=== PATIENT | female | born 1955 | race Two or more races ===

== ENCOUNTER 2018-12-17 20:45 | Inpatient (IN) | payer BC ==
[~2018-12-17] VITALS: Ht 156.2 cm; Wt 86.0 kg
[2018-12-17 21:45] LABS: BASOPHILS % (AUTO) 0.4 % (0-1); EOSINOPHILS # (AUTO) 0.1 X10'3 (0-0.9); EOSINOPHILS % (AUTO) 1.5 % (0-6); HEMATOCRIT 37.5 % (35.0-45.0); HEMOGLOBIN 13.1 g/dl (12.0-16.0); LYMPHOCYTES # (AUTO) 1.6 X10'3 (1.1-4.8); LYMPHOCYTES % (AUTO) 16.9 % (21-51); MEAN CORPUSCULAR HEMOGLOBIN 29.6 PG (27.0-31.0); MEAN CORPUSCULAR VOLUME 84.5 FL (78-98); MEAN PLATELET VOLUME 7.3 FL (7.4-10.4); MONOCYTES # (AUTO) 0.5 X10'3 (0-0.9); MONOCYTES % (AUTO) 5.5 % (2-12); NEUTROPHILS # (AUTO) 7.1 X10'3 (1.8-7.7); NEUTROPHILS % (AUTO) 75.7 % (42-75); PLATELET COUNT 276 X10'3 (140-440); RED BLOOD COUNT 4.44 X10'6 (4.20-5.60); RED CELL DISTRIBUTION WIDTH 12.9 % (11.5-14.5); WHITE BLOOD COUNT 9.4 X10'3 (4.5-11.0)
[2018-12-17 22:03] LABS: PARTIAL THROMBOPLASTIN TIME 27 SECONDS (22-32)
[2018-12-17 22:08] LABS: ALANINE AMINOTRANSFERASE 23 U/L (12-78); ALBUMIN 3.7 G/DL (3.4-5.0); ALBUMIN/GLOBULIN RATIO 1.1 (1.1-1.5); ALKALINE PHOSPHATASE 103 IU/L (46-116); ANION GAP 10 (8-16); ASPARTATE AMINO TRANSFERASE 19 U/L (10-37); BILIRUBIN,TOTAL 0.6 MG/DL (0.1-1.0); BLOOD UREA NITROGEN 17 MG/DL (7-18); BUN/CREATININE RATIO 17.9 (6.6-38.0); CALCIUM 8.5 MG/DL (8.5-10.1); CHLORIDE 89 MMOL/L (99-107); CREATININE 0.95 MG/DL (0.40-0.90); GLUCOSE 157 MG/DL (70-104); POTASSIUM 3.7 MMOL/L (3.5-5.1); SODIUM 122 MMOL/L (135-145); TOTAL CARBON DIOXIDE 23.2 MMOL/L (24-32); TOTAL PROTEIN 7.2 G/DL (6.4-8.2); eGFR 59 ML/MIN
[2018-12-17] MEDS: aspirin 325mg tablet PO ONE ×2 (23:02→23:03)
[2018-12-17] MEDS ORDERED: aspirin 300mg supp.rect RC STA (23:13)
[2018-12-17] MEDS ORDERED: regadenoson 0.4mg/5ml syringe IV ONE (23:45)
[2018-12-17] MEDS ORDERED: magnesium 4gm in 100ml NS 100 ML IV PRN (23:45)
[2018-12-17] MEDS ORDERED: potassium Cl 40MEQ/NS 500ml 500 ML IV PRN ×2 (23:45)
[2018-12-17] MEDS ORDERED: aminophylline 250mg/10ml inj. IV PRN (23:45)
[2018-12-17] MEDS ORDERED: magnesium Cl slow-release 64mg tablet PO PRN (23:45)
[2018-12-17] MEDS ORDERED: nitroGLYCERIN 0.4mg SUBLingual tab SL PRN (23:45)
[2018-12-17] MEDS ORDERED: metoprolol tartrate 1mg/ml inj IV PRN (23:45)
[2018-12-17] MEDS ORDERED: acetaminophen 325mg tablet PO PRN (23:45)
[2018-12-17] MEDS ORDERED: magnesium 2GM in 50ml NS 50 ML IV PRN (23:45)
[2018-12-17] MEDS ORDERED: ondansetron/PF 4mg/2ml inj IV PRN (23:45)
[2018-12-17] MEDS ORDERED: potassium Cl 20 mEq SR tablet PO PRN ×2 (23:45)
[2018-12-17] MEDS ORDERED: LISI10TA4 PO (23:57)
[2018-12-17] MEDS ORDERED: ASPI-845 PO (23:57)
[2018-12-18] VITALS (11 sets, daily range): BP systolic 111–163; BP diastolic 46–74
[2018-12-18] MEDS ORDERED: LANTUS (00:02)
[2018-12-18] MEDS ORDERED: GLIP-192 PO (00:02)
[2018-12-18] MEDS ORDERED: ROSU5TAB11 PO (00:02)
[2018-12-18] MEDS ORDERED: SITA1TAB6 PO (00:02)
[2018-12-18] MEDS ORDERED: CARV6.253 PO (00:02)
[2018-12-18] MEDS ORDERED: FURO20TA4 PO (00:02)
[2018-12-18] MEDS: normal saline 1000ml 1,000 ML IV SCH ×3 (00:19→12:40)
--- NOTE | 2018-12-18 00:22 | NUR ---
came into room as the bp was noted to be elevated and the patient is c/o c/p and has a little sweat beaded on her forehead and she is shaking. Afebrile. BP 206/99 c/p 8/10 substernal. Adm 0.4 mg NTG SL. She is appearing anxious as well. She c/o SOB.
--- NOTE | 2018-12-18 00:33 | NUR ---
Pt had been placed on oxygen 2 L NC. EKG has been done.
[2018-12-18] MEDS ORDERED: LORazepam 2 mg/ml vial IV STA (00:37)
--- NOTE | 2018-12-18 00:39 | NUR ---
daughter is here and says it could very well be anxiety because the patient's here r/t heart problems and patients 2 children of heart problems.
--- NOTE | 2018-12-18 00:39 | NUR ---
Dr Willard stopped by to check on the patient, SBAR given, received order for ativan.
--- NOTE | 2018-12-18 01:06 | NUR ---
Pt is resting, her hands are not trembling. She is actually asleep.
--- NOTE | 2018-12-18 01:24 | NUR ---
RECEIVED REPORT FROM AYE MARTINEZ PENDING ARRIVAL FROM ER. WILL GIVE REPORT TO AYE TALBOT ONCE BACK FROM BREAK.
--- NOTE | 2018-12-18 01:24 | NUR ---
pt daughter states that a family member commited suicide last month, this thursday will be 2 year anniversary for in this hospital
[2018-12-18] MEDS ORDERED: dextrose 50%-water 50ml dispensing syringe IV PRN ×2 (03:30)
[2018-12-18] MEDS ORDERED: glucagon, human recombinant 1mg kit SUBCUT PRN (03:30)
[2018-12-18] MEDS ORDERED: MESSAGE TO PHARMACY PO ONE (03:30)
[2018-12-18] MEDS ORDERED: dextrose ORAL solution 15 GM/59 ML bottle PO PRN ×2 (03:30)
[2018-12-18 04:46] LABS: BASOPHILS % (AUTO) 0.2 % (0-1); EOSINOPHILS % (AUTO) 0.3 % (0-6); HEMATOCRIT 38.3 % (35.0-45.0); HEMOGLOBIN 13.3 g/dl (12.0-16.0); LYMPHOCYTES # (AUTO) 1.2 X10'3 (1.1-4.8); LYMPHOCYTES % (AUTO) 12.2 % (21-51); MEAN CORPUSCULAR HEMOGLOBIN 29.2 PG (27.0-31.0); MEAN CORPUSCULAR HGB CONC 34.8 g/dL (33.0-36.5); MEAN CORPUSCULAR VOLUME 83.9 FL (78-98); MEAN PLATELET VOLUME 7.1 FL (7.4-10.4); MONOCYTES # (AUTO) 0.4 X10'3 (0-0.9); MONOCYTES % (AUTO) 4.4 % (2-12); NEUTROPHILS # (AUTO) 7.9 X10'3 (1.8-7.7); NEUTROPHILS % (AUTO) 82.9 % (42-75); PLATELET COUNT 251 X10'3 (140-440); RED BLOOD COUNT 4.57 X10'6 (4.20-5.60); RED CELL DISTRIBUTION WIDTH 13.1 % (11.5-14.5); WHITE BLOOD COUNT 9.6 X10'3 (4.5-11.0)
[2018-12-18 05:13] LABS: ALBUMIN 3.3 G/DL (3.4-5.0); ANION GAP 8 (8-16); BLOOD UREA NITROGEN 16 MG/DL (7-18); BUN/CREATININE RATIO 18.4 (6.6-38.0); CALCIUM 8.2 MG/DL (8.5-10.1); CHLORIDE 91 MMOL/L (99-107); CREATININE 0.87 MG/DL (0.40-0.90); GLUCOSE 195 MG/DL (70-104); MAGNESIUM 1.5 MG/DL (1.5-2.4); SODIUM 122 MMOL/L (135-145); eGFR 66 ML/MIN
[2018-12-18 05:35] LABS: HEMOGLOBIN A1C 9.3 % (4.5-6.2)
--- NOTE | 2018-12-18 06:10 | NUR ---
Patient in room ORTHO 4009. I have received report from Nahid Wright RN and had the opportunity to ask questions and assume patient care.
[2018-12-18] MEDS: insulin Lispro (HumaLOG) vial - multi-dose SQ SCH ×4 (07:50→21:18)
[2018-12-18] MEDS: K and/or MAG REPLACEMENT MC SCH (08:00)
[2018-12-18] MEDS: carvedilol 6.25mg tablet PO SCH (08:00)
[2018-12-18] MEDS: atorvastatin 20mg tablet PO SCH (08:02)
[2018-12-18] MEDS: aspirin 325mg tablet, delayed-release (Ecotrin) PO SCH (08:02)
--- NOTE | 2018-12-18 08:25 | NUR ---
Pt taken to [facility]
[2018-12-18] MEDS ORDERED: regadenoson 0.4mg/5ml syringe IV ONE (09:28)
[2018-12-18] MEDS ORDERED: aminophylline inj. 10 ML IV ONE ×2 (09:28→09:56)
--- NOTE | 2018-12-18 10:29 | NUR ---
[facility] well per RN
[2018-12-18] MEDS: lisinopril 10 MG tablet PO SCH (10:38)
[2018-12-18 11:51] LABS: CHOLESTEROL 117 MG/DL (0-200); HDL CHOLESTEROL 39 MG/DL (35-60); LDL CHOLESTEROL 63 MG/DL (50-100); TRIGLYCERIDES 129 MG/DL (20-135)
--- NOTE | 2018-12-18 11:56 | NUR ---
Spent time in pt's room with MD present. Reviewed pt's current status, med changes, advised Coreg was held due to decreased HR, will continue to monitor
--- NOTE | 2018-12-18 12:19 | NUR ---
DM consult: Pt with A1c 9.3. Attempted visit with patient at bedside however pt unavailable. Will f/u for DM ed prior to d/c. Pt admit with CP and hyponatremia. Pt currently on CHO controlled diet pending documented PO intake. LBM 12/17. No edema or wounds. Will continue to follow. Recommendations: 1) Continue with CHO controlled diet 2) DM ed prior to d/c 3) Wt per rx Addendum: 12/18/18 at [address] Amended: Links added.
[2018-12-18 14:31] LABS: ALBUMIN 3.2 G/DL (3.4-5.0); ANION GAP 8 (8-16); BLOOD UREA NITROGEN 12 MG/DL (7-18); BUN/CREATININE RATIO 14.8 (6.6-38.0); CALCIUM 8.8 MG/DL (8.5-10.1); CHLORIDE 99 MMOL/L (99-107); CREATININE 0.81 MG/DL (0.40-0.90); GLUCOSE 258 MG/DL (70-104); SODIUM 130 MMOL/L (135-145); TOTAL CARBON DIOXIDE 23.1 MMOL/L (24-32); eGFR 71 ML/MIN
[2018-12-18 14:33] LABS: POTASSIUM 3.9 MMOL/L (3.5-5.1)
--- NOTE | 2018-12-18 18:19 | NUR ---
Problems reprioritized. Patient report given, questions answered & plan of care reviewed with Gina GRIFFITHS.
[2018-12-18] MEDS: insulin glargine (Lantus) pen - multi-dose SQ SCH (21:19)
[2018-12-19 06:00] VITALS: BP 138/56
[2018-12-19 06:08] LABS: BASOPHILS % (AUTO) 0.6 % (0-1); EOSINOPHILS # (AUTO) 0.2 X10'3 (0-0.9); EOSINOPHILS % (AUTO) 3.5 % (0-6); HEMOGLOBIN 12.7 g/dl (12.0-16.0); LYMPHOCYTES # (AUTO) 1.8 X10'3 (1.1-4.8); LYMPHOCYTES % (AUTO) 29.5 % (21-51); MEAN CORPUSCULAR HEMOGLOBIN 29.9 PG (27.0-31.0); MEAN CORPUSCULAR HGB CONC 34.4 g/dL (33.0-36.5); MEAN CORPUSCULAR VOLUME 86.9 FL (78-98); MEAN PLATELET VOLUME 7.2 FL (7.4-10.4); MONOCYTES # (AUTO) 0.5 X10'3 (0-0.9); MONOCYTES % (AUTO) 8.3 % (2-12); NEUTROPHILS # (AUTO) 3.5 X10'3 (1.8-7.7); NEUTROPHILS % (AUTO) 58.1 % (42-75); PLATELET COUNT 226 X10'3 (140-440); RED BLOOD COUNT 4.26 X10'6 (4.20-5.60); RED CELL DISTRIBUTION WIDTH 13.6 % (11.5-14.5)
[2018-12-19 06:24] LABS: ALBUMIN 3.3 G/DL (3.4-5.0); ANION GAP 9 (8-16); BLOOD UREA NITROGEN 14 MG/DL (7-18); BUN/CREATININE RATIO 16.9 (6.6-38.0); CALCIUM 8.5 MG/DL (8.5-10.1); CHLORIDE 106 MMOL/L (99-107); CREATININE 0.83 MG/DL (0.40-0.90); GLUCOSE 127 MG/DL (70-104); MAGNESIUM 1.8 MG/DL (1.5-2.4); SODIUM 138 MMOL/L (135-145); TOTAL CARBON DIOXIDE 23.4 MMOL/L (24-32); eGFR 69 ML/MIN
--- NOTE | 2018-12-19 06:35 | NUR ---
REPORT GIVEN TO AYE DESAI.
[2018-12-19] MEDS: K and/or MAG REPLACEMENT MC SCH (06:46)
[2018-12-19] MEDS: atorvastatin 20mg tablet PO SCH (07:19)
[2018-12-19] MEDS: lisinopril 10 MG tablet PO SCH ×2 (07:19→09:54)
[2018-12-19] MEDS: aspirin 325mg tablet, delayed-release (Ecotrin) PO SCH (07:19)
[2018-12-19] MEDS: carvedilol 6.25mg tablet PO SCH (07:20)
--- NOTE | 2018-12-19 08:12 | NUR ---
CAT BITE TO HAND. Addendum: 12/19/18 at 0828 by Cyndi Keyes RN Amended: Links added. Addendum: 12/19/18 at 1325 by Cyndi Keyes RN WRONG PATIENT
[2018-12-19] MEDS: insulin Lispro (HumaLOG) vial - multi-dose SQ SCH ×4 (08:48→21:00)
[2018-12-19 10:00] VITALS: BP 116/43
[2018-12-19] MEDS: normal saline 1000ml 1,000 ML IV SCH (12:23)
--- NOTE | 2018-12-19 13:02 | NUR ---
Pt seen by SHAYNA for written/verbal DM ed w/ RD contact information provided. Pt declined verbal DM ed but accepted card and handout. RD encouraged pt to attend CDE course. Pt goes to [facility] and shares she knows what to do but needs to follow it. Addendum: 12/19/18 at [address] Amended: Links added.
--- NOTE | 2018-12-19 13:25 | NUR ---
PATIENT TO MRI
--- NOTE | 2018-12-19 16:02 | NUR ---
TELE NEURO CONSULT COMPLETED WITH DR BRIGGS AFTER VERBAL CONSENT OBTAINED FROM PT.
--- NOTE | 2018-12-19 16:17 | NUR ---
DISCUSSED TELE NEUROLOGIST CONVERSATION WITH DR CAMARENA.
[2018-12-19 18:00] VITALS: BP 139/59
[2018-12-19] MEDS: insulin glargine (Lantus) pen - multi-dose SQ SCH (21:01)
[2018-12-19 22:00] VITALS: BP 149/61
[2018-12-20 06:00] VITALS: BP 124/47
[2018-12-20 06:27] LABS: BASOPHILS % (AUTO) 0.5 % (0-1); EOSINOPHILS # (AUTO) 0.3 X10'3 (0-0.9); EOSINOPHILS % (AUTO) 5.3 % (0-6); HEMATOCRIT 33.8 % (35.0-45.0); HEMOGLOBIN 11.7 g/dl (12.0-16.0); LYMPHOCYTES # (AUTO) 1.8 X10'3 (1.1-4.8); LYMPHOCYTES % (AUTO) 28.5 % (21-51); MEAN CORPUSCULAR HEMOGLOBIN 29.8 PG (27.0-31.0); MEAN CORPUSCULAR HGB CONC 34.6 g/dL (33.0-36.5); MEAN CORPUSCULAR VOLUME 86.2 FL (78-98); MEAN PLATELET VOLUME 7.1 FL (7.4-10.4); MONOCYTES # (AUTO) 0.6 X10'3 (0-0.9); MONOCYTES % (AUTO) 8.9 % (2-12); NEUTROPHILS # (AUTO) 3.6 X10'3 (1.8-7.7); NEUTROPHILS % (AUTO) 56.8 % (42-75); PLATELET COUNT 202 X10'3 (140-440); RED BLOOD COUNT 3.92 X10'6 (4.20-5.60); RED CELL DISTRIBUTION WIDTH 13.7 % (11.5-14.5); WHITE BLOOD COUNT 6.4 X10'3 (4.5-11.0)
--- NOTE | 2018-12-20 06:33 | NUR ---
Patient in room ORTHO 4011. I have received report from Elda GRIFFITHS and had the opportunity to ask questions and assume patient care.
--- NOTE | 2018-12-20 06:43 | NUR ---
Problems reprioritized. Patient report given, questions answered & plan of care reviewed with silvano Schroeder.
[2018-12-20 06:51] LABS: ANION GAP 9 (8-16); BLOOD UREA NITROGEN 12 MG/DL (7-18); CALCIUM 8.5 MG/DL (8.5-10.1); CHLORIDE 108 MMOL/L (99-107); CREATININE 0.75 MG/DL (0.40-0.90); GLUCOSE 138 MG/DL (70-104); MAGNESIUM 1.8 MG/DL (1.5-2.4); POTASSIUM 3.8 MMOL/L (3.5-5.1); SODIUM 138 MMOL/L (135-145); TOTAL CARBON DIOXIDE 21.5 MMOL/L (24-32); eGFR 78 ML/MIN
[2018-12-20 07:31] VITALS: BP 134/56
[2018-12-20] MEDS: K and/or MAG REPLACEMENT MC SCH (07:58)
[2018-12-20] MEDS: carvedilol 6.25mg tablet PO SCH (08:13)
[2018-12-20] MEDS: aspirin 325mg tablet, delayed-release (Ecotrin) PO SCH (08:13)
[2018-12-20] MEDS: atorvastatin 20mg tablet PO SCH (08:14)
[2018-12-20] MEDS: lisinopril 10 MG tablet PO SCH (08:14)
[2018-12-20] MEDS: insulin Lispro (HumaLOG) vial - multi-dose SQ SCH (09:22)
[2018-12-20 11:22] VITALS: BP 126/56
--- NOTE | 2018-12-20 11:45 | NUR ---
Student Medication Administration: For this medication-pass time frame [id number], all medications, including insulin were reviewed, administered and documented per hospital policy by Elinor Floyd. Student documentation: I have reviewed and agree with all interventions, assessments performed and documented by Elinor Floyd.
--- NOTE | 2018-12-20 11:45 | NUR ---
Problems reprioritized. Patient report given, questions answered & plan of care reviewed with Elda GRIFFITHS.
--- NOTE | 2018-12-20 15:30 | NUR ---
DC pt to home. Pt family member picking pt up. Pt escorted SADIA by [facility] staff & family member to home. All DC documents sent home with pt as needed.
== END 2018-12-20 14:30 | disposition home or self-care (01) | DRG 103 ==
LOC: ER 20:46 → OBSVTOIN 12-18 01:37 → ORTHO 4S 12-18 01:37
PROVIDERS: ADMIT Internal Medicine; ATTEND Internal Medicine
PROC: 4A02XM4 Measurement of Cardiac Total Activity, External Approach (ICD-10-PCS; principal; 2018-12-18)
PROC: 3E033HZ Introduction of Radioactive Substance into Peripheral Vein, Percutaneous Approach (ICD-10-PCS; 2018-12-18)
DX: G43.109 Migraine with aura, not intractable, without status migrainosus (principal); R47.01 Aphasia; E87.1 Hypo-osmolality and hyponatremia; R07.89 Other chest pain; F41.0 Panic disorder [episodic paroxysmal anxiety]; K21.9 Gastro-esophageal reflux disease without esophagitis; I10 Essential (primary) hypertension; E03.9 Hypothyroidism, unspecified; E11.9 Type 2 diabetes mellitus without complications; R20.0 Anesthesia of skin; E78.5 Hyperlipidemia, unspecified; Z79.4 Long term (current) use of insulin; Z88.0 Allergy status to penicillin; Z91.041 Radiographic dye allergy status; Z86.73 Personal history of transient ischemic attack (TIA), and cerebral infarction without residual deficits; Z90.710 Acquired absence of both cervix and uterus; Z79.82 Long term (current) use of aspirin; Z79.84 Long term (current) use of oral hypoglycemic drugs
CPT/HCPCS: 36415; 70544; 70547; 70551; 71045; 78452; 80048; 80053; 80061; 82948; 83036; 83735; 84443; 84484; 85025; 85610; 85730; 87070; 93005; 93017; 93306; 93880; 96374; 99285; A9500; G0378; J0280; J1815; J2060; J7030